=== PATIENT | male | born 1965 | race Caucasian/White ===

== ENCOUNTER 2025-02-09 09:07 | Emergency (ER) | payer OTHER ==
[~2025-02-09] VITALS: Ht 177.8 cm; Wt 80.8 kg
[2025-02-09] MEDS: PROPARACAINE 0.5% OPHTH SOL 15ML OU ONE (09:45)
[2025-02-09] MEDS: ACETAMINOPHEN 500 MG TAB PO ONE (10:35)
[2025-02-09 10:41] VITALS: BP 131/83; TEMP 96.1; O2SAT 96
== END 2025-02-09 10:43 | disposition short-term general hospital (02) ==
LOC: M ED 09:07
DX: H53.452 Other localized visual field defect, left eye (principal); I10 Essential (primary) hypertension; E78.00 Pure hypercholesterolemia, unspecified; Z88.2 Allergy status to sulfonamides; Z88.8 Allergy status to other drugs, medicaments and biological substances